=== PATIENT | male | born 1945 | race Caucasian/White ===

== ENCOUNTER 2017-02-01 14:17 | Outpatient (CLI) | payer MEDICARE ==
[2017-02-01 15:14] LABS: #Lymphocytes 0.9 thou/uL (1.20-3.40); #Monocytes 0.5 thou/uL (0.11-0.59); #Neutrophils 4.8 thou/uL (1.40-6.50); %Basophils 0.1 % (0.0-1.0); %Eosinophils 0.3 % (0.0-10.0); %Lymphocytes 14.7 % (21.0-51.0); %Monocytes 7.6 % (0.0-10.0); Mean Platelet Volume 8.2 fL (7.4-10.4); Red Blood Cell (RBC) Count 5.62 mill/uL (4.70-6.10); White Blood Cell (WBC) Count 6.1 thou/uL (4.8-10.8)
[2017-02-01 15:16] LABS: Bilirubin Negative (Negative); Blood, Urine Negative (Negative); Glucose, Urine (Dipstick) Negative (Negative); Ketone, Urine Negative (Negative); Nitrite Negative (Negative); Protein, Urine (Dipstick) Negative (Neg-Trace); Urobilinogen 0.2 mg/dL (0.2-1.0)
[2017-02-01 15:24] LABS: Bacteria/HPF None Seen HPF (None Seen); Hyaline Casts/LPF 0-3 HYALINE CAST LPF (0-3 Hyaline); RBC/HPF 0-3 HPF (0-3); Squamous Epithelial None Seen HPF (0-3); WBC/HPF None Seen HPF (0-3)
[2017-02-01 15:43] LABS: Anion Gap 14 mmol/L (10-20); BUN (Urea Nitrogen) 14 mg/dL (8.4-25.7); Calc. Creatinine Clearance 0 mL/min (70-130); Calcium 9.6 mg/dL (7.8-10.44); Carbon Dioxide 30 mmol/L (23-31); Chloride 100 mmol/L (98-107); Estimated GFR-MDRD Greater than 90
--- NOTE | 2017-02-01 16:06 | RAD ---
CHEST TWO VEIWS: History: Pre op. FINDINGS: Cardiac silhouette is upper limits of normal in size. Pulmonary vasculature is unremarkable. Mediasti num is midline. Scarring is present at each lung base. There is no confluent airspace consolidation, pneumothorax or pleural fluid evident. IMPRESSION: Mild bibasilar linear scarring. No active cardiopulmonary abnormalities are demonstrated. POS: H
--- NOTE | 2017-02-02 07:30 | EKG ---
Test Reason : Blood Pressure : / mmHG Vent. Rate : 100 BPM Atrial Rate : 100 BPM P-R Int : 156 ms QRS Dur : 086 ms QT Int : 338 ms P-R-T Axes : 071 084 055 degrees QTc Int : 436 ms Normal sinus rhythm Low voltage QRS Inferior infarct , age undetermined cannot R/O acute or recent NH Cannot rule out Anterior infarct , age undetermined Abnormal ECG No previous ECGs available Confirmed by DR. Regine MONTGOMERY ([id number]) on 02/02/2017 7:29:52 AM Referred By: VERONIQUE Confirmed By:DR. Regine MONTGOMERY
== END 2017-02-01 14:18 | disposition home or self-care (01) ==
LOC: LABBT 14:17
PROVIDERS: ATTEND Orthopaedic Surgery Hand Surgery
DX: Z01.818 Encounter for other preprocedural examination (principal); G57.02 Lesion of sciatic nerve, left lower limb
CPT/HCPCS: 71020; 80048; 81001; 85025; 93005; 93010

== ENCOUNTER 2017-02-09 07:05 | Day surgery (SDC) | payer MEDICARE ==
[2017-02-01 14:33] VITALS: BMI 39.5
[~2017-02-09 07:05] MED LIST: Calcium Chloride 1 GM/10 ML Abboject SYRINGE ONE; Ketorolac Tromethamine 30 MG/ML VIAL ONE; Lidocaine 1% PF 5 ML VIAL ONE; Ondansetron HCl/PF 4 MG/2 ML Vial ONE; PHENYLEPHRINE-NS 100 MCG/ML 10 ML SYRINGE ONE; PROPOFOL 200 MG/20 ML VIAL ONE; ePHEDrine/0.9% NaCl/PF SYRINGE 50 mg/10 ml ONE
[2017-02-09] MEDS ORDERED: Fentanyl 100 MCG/2 ML VIAL ONE (08:40)
[2017-02-09] MEDS ORDERED: Betamet Acet/Betamet Na Ph 30 MG/5 ML VIAL ONE (08:42)
[2017-02-09] MEDS ORDERED: Bacitracin Zinc Ointment 30 gm TUBE ONE (08:42)
[2017-02-09] MEDS ORDERED: Bupivacaine PF 0.5% 30 ML VIAL ONE (08:42)
[2017-02-09] MEDS ORDERED: CEFAZOLIN/Water 2 GM/20 ML SYRINGE ONE (08:45)
[2017-02-09] MEDS ORDERED: Ketorolac Tromethamine 30 MG/ML VIAL ONE (10:24)
--- NOTE | 2017-02-09 10:58 | OP ---
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 SURGEON: Dr. Ajay Suarez FINDINGS: 1. Very tight crural fascia, dorsal and deep to the peroneal nerve as it entered the crural fascia o lroena the fibular head with almost a 40% compression of the nerve at this point. PROCEDURE PERFORMED: A left peroneal nerve decompression at the fibular head. TOURNIQUET TIME: 20 minutes. ESTIMATED BLOOD LOSS: 5 mL. INJECTABLES: Yes; 1) 20 mL 0.5% Marcaine without epinephrine, 10 before incision and 10 after the in cision was closed; 2) 5 mL of Celestone dripped along the interspace at the point of compression. INDICATIONS: The patient with numbness, tingling beginning just proximal to the fibular head with po sitive Tinel's and studies preop. DESCRIPTION OF PROCEDURE: After successful general LMA technique, the patient had the limb prepped a nd draped. Time out done appropriately. We then outlined an incision beginning one fingerbreadth di stal to the fibular head. I outlined the fibular head and then coursing 2 cm dorsally and 2 cm poste rior to the head. The patient then had the limb exsanguinated, tourniquet inflated to 25 mmHg pressure and the leg was draped free with the foot on a resting to 10 pound sandbag at approximately 90 degrees of flexion. I ncision was then made, carried through skin, subcutaneous tissue, and then we dissected the overlying fat, which was minimal because the patient was not obese at this point. We identified the peroneal nerve and the lateral sural branch releasing the fascia over it approximately 2 cm proximal to the fi bular head, identified the nerve by both structure and location and the red intraneural vasculature. Here however, approximately 5 cm proximal fibular head where the fascia began was a flattening of th e nerve root over 40-50% because of stricture and loss of size in the nerve at this point. We then d issected nerve free and released a very tight intercrural band at this site of fascia. Then, I disse cted through the musculature, identified the second dorsal crural band over the nerve. Maintaining a s much of the muscle as possible, we dissected until the nerve was branching, releasing all tight ban ds including the third band that was distal to the dorsal crural band. Once we had done this, then inspected the nerve at 360 degree circumferentially, saw that the soleus fascia was slightly recessed, could be slightly recessed the soleus fascia, again inspected the later al sural nerve branch and found it had no constriction over it. At this point, the nerve began to re constitute and we gained over 70% of his girth after all the constricting bands were released. The r elease constricting bands were then dissected free and removed from the anatomical location. We then cycled the leg several times confirming there was no compression either extension or flexion, placed the 5 mL of Celestone along the nerve area and then prepared for closure. Tourniquet deflate d. Hemostasis obtained. We then irrigated and then closed the wound in 2 layers with a running 3-0 Monocryl, subcutaneous closed and epidermal closed with interrupted 4-0 nylon. The patient then left the operating room in a dressing with no evidence of anesthetic or operative co mplication.
== END 2017-02-09 11:58 | disposition home or self-care (01) ==
LOC: SDC 07:05
PROVIDERS: ATTEND Orthopaedic Surgery Hand Surgery
PROC: 01NH0ZZ Release Peroneal Nerve, Open Approach (ICD-10-PCS; principal; 2017-02-09)
DX: G57.32 Lesion of lateral popliteal nerve, left lower limb (principal); F17.210 Nicotine dependence, cigarettes, uncomplicated; M19.90 Unspecified osteoarthritis, unspecified site; N40.0 Benign prostatic hyperplasia without lower urinary tract symptoms; Z79.899 Other long term (current) drug therapy; Z98.42 Cataract extraction status, left eye; Z98.890 Other specified postprocedural states; Z87.442 Personal history of urinary calculi
CPT/HCPCS: J0702; J1885; J2001; J2405; J2704; J3010; S0020

== ENCOUNTER 2017-06-08 11:04 | Day surgery (SDC) | payer MEDICARE ==
[2017-06-07 10:00] VITALS: BMI 39.5
[2017-06-08 12:04] LABS: Calc. Creatinine Clearance 141 mL/min (70-130); Estimated GFR-MDRD Greater than 90
[2017-06-08] MEDS ORDERED: Promethazine HCl 25 MG/ML VIAL ONE (12:38)
[2017-06-08] MEDS ORDERED: Midazolam HCl 2 mg/2 ml Vial ONE (12:38)
--- NOTE | 2017-06-08 15:39 | MRI ---
MRI OF LUMBAR SPINE WITH AND WITHOUT CONTRAST 06/08/17 INDICATION; 71-year-old male with multiple back surgeries, recent injury with left foot numbness. TECHNIQUE: Multiplanar and multisequence MRI images were obtained of the lumbar spine with and without contrast utilizing 20 mL of Multihance. Comparison is made with radiographs of lumbar spine dated 01/14/15. FINDINGS: There is stable postsurgical change of laminectomies at L3 and L4. The conus is seen to terminate at T12-L1. There is a 2.7 cm cyst within the left kidney. There is a 7 mm cyst within the left mid kidn ey. At the L5-S1 level, there is severe facet joint degenerative change and broad based bulge without jaydon reciable central canal or neural foraminal narrowing. At L4-5, there is a broad based bulge with a superimposed central protrusion inducing moderate bilate ral lateral recess narrowing without definite impingement. The broad based bulge and facet hypertroph y induces mild to moderate left neural foraminal narrowing. At L3-4, there is a broad based bulge with facet hypertrophy inducing moderate bilateral neural alfreda inal narrowing. At L2-3, there is a broad based bulge with facet hypertrophy inducing mild left neural foraminal narr owing. There is also mild central canal narrowing due to the broad based bulge and ligamentum flavum hypertrophy at this level. At L1-2, there is no definite appreciable central canal or neural foraminal narrowing. At T12-L1, there is no appreciable central canal or neural foraminal narrowing. No definite abnormal enhancement is demonstrated. IMPRESSION: 1. Mild central canal narrowing at L2-3 with mild left neural foraminal narrowing. 2. Moderate bilateral neural foraminal narrowing at L3-4. 3. Moderate bilateral lateral recess narrowing at L4-5 due to broad based bulge and facet hypert rophy. There is mild to moderate left neural foraminal narrowing at L4-5. 4. Postoperative changes of the lumbar spine. 5. Left renal cyst. POS: DIPAK
[2017-06-08] MEDS ORDERED: Gadobenate Dimeglumine 529 MG/1 ML (20ML VIAL) ONE (20:23)
== END 2017-06-08 16:18 | disposition home or self-care (01) ==
LOC: SDC/OP 11:04
PROVIDERS: ATTEND Neurological Surgery
DX: M54.5 Low back pain (principal); Z79.899 Other long term (current) drug therapy; Z98.890 Other specified postprocedural states
CPT/HCPCS: 36415; 72158; 82565; A9579; J2250; J2550

== ENCOUNTER 2017-08-13 05:41 | Day surgery (SDC) | payer MEDICARE ==
[2017-08-10 10:40] VITALS: BMI 39.5
--- NOTE | 2017-08-12 22:43 | HP ---
HISTORY OF PRESENT ILLNESS: Mr. Lopez is a 72-year-old man known to us for previous evaluations of neck and low back, mostly lumbar pathology with a few previous lumbar decompressions in the past. Benedict hull returns now with continued severe low back pain. He denies much of any radicular pain. 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 He has had an interspinous steroid injection with Dr. Mckeon and does report that did offer him some relief. He hopes to move forward with surgery to help correct this. PAST MEDICAL HISTORY: Kidney stones, headaches, lumbar radiculopathy, and stenosis. PAST SURGICAL HISTORY: Knee arthroscopy, kidney stone lithotripsy, bilateral carpal tunnel release, and lumbar laminectomy x2. CURRENT MEDICATIONS: Flomax, Zithromax, Claritin. ALLERGIES: No known drug allergies. PHYSICAL EXAMINATION: Patient is alert and oriented x3. Gait is antalgic. Lower extremity exam is normal. ASSESSMENT: Lumbar back pain. PLAN: Dr. Hall met with the patient, reviewed imaging and advocated for L1-L2 spinous process resec tion. He explained to the patient the risks, benefits, alternatives to the procedure. The patient e xpressed understanding and would like to move forward with surgery as discussed. I do believe the so silverio is mentally competent and capable of making medical decisions for himself and we will move foralexandre oseguera with surgery as planned. Gibson Burgos PA-C dictating for Dr. Hall.
[2017-08-13] MEDS ORDERED: Fentanyl 250 MCG/5 ML VIAL ONE (06:10)
[2017-08-13] MEDS ORDERED: Midazolam HCl 2 mg/2 ml Vial ONE (06:10)
[2017-08-13] MEDS ORDERED: Bupivacaine HCl 0.5%/Epinephrine 1:200,000/PF 30 ml Vial ONE (06:16)
[2017-08-13] MEDS ORDERED: Thrombin 5000 UNITS/5 ML VIAL ONE (06:16)
[2017-08-13] MEDS ORDERED: CEFAZOLIN/Water 2 GM/20 ML SYRINGE ONE ×2 (06:18→09:46)
--- NOTE | 2017-08-13 08:07 | OP ---
DATE OF PROCEDURE: 08/13/2017 SURGEON: Terry Hall M.D. PRINCIPAL TECHNICAL WRITER: Gibson Burgos PA-C. INDICATION: Pain. DIAGNOSES: Low back pain. PROCEDURE: Resection of spinous process at L1 and L2 segment. ANESTHESIA: General. TECHNIQUE: The patient was brought into the operating room and placed under general anesthesia. He was flipped from a supine or prone position on the operating room table. A linear incision was plann ed along the L1-L2 segment just superior to an older incision. After prepping and draping and after an appropriate operative pause, the incision was created. The soft tissues were swept away from midl ine. Self-retaining retractors were placed in the wound for optimal exposure. After confirming the appropriate level with C-arm fluoroscopy, an Adson rongeur was used to remove the spinous process of L1-L2. After removing the spinous processes the wound was irrigated. Hemostasis was maintained thro ughout. The wound was then closed in anatomic layers and a pressure dressing was applied. There wer e no known procedural complications.
[2017-08-13] MEDS ORDERED: Bacitracin Zinc Ointment 30 gm TUBE ONE (08:11)
[2017-08-13] MEDS ORDERED: Fentanyl 100 MCG/2 ML VIAL ONE (08:25)
[2017-08-13] MEDS ORDERED: Tamsulosin HCl 0.4 MG CAP ONE (08:48)
[2017-08-13] MEDS ORDERED: Dexamethasone 20 MG/5 ML VIAL ONE (14:52)
[2017-08-13] MEDS ORDERED: ePHEDrine/0.9% NaCl/PF SYRINGE 50 mg/10 ml ONE (14:52)
[2017-08-13] MEDS ORDERED: PHENYLEPHRINE-NS 100 MCG/ML 10 ML SYRINGE ONE (14:52)
[2017-08-13] MEDS ORDERED: Lidocaine 1% PF 5 ML VIAL ONE (14:52)
[2017-08-13] MEDS ORDERED: Ondansetron HCl/PF 4 MG/2 ML Vial ONE (14:52)
[2017-08-13] MEDS ORDERED: Glycopyrrolate 0.2 MG/ML 5 ML SYRINGE ONE (14:52)
[2017-08-13] MEDS ORDERED: PROPOFOL 200 MG/20 ML VIAL ONE (14:52)
== END 2017-08-13 11:30 | disposition home or self-care (01) ==
LOC: SDC 05:41
PROVIDERS: ATTEND Neurological Surgery
PROC: 0QB00ZZ Excision of Lumbar Vertebra, Open Approach (ICD-10-PCS; principal; 2017-08-13)
DX: M54.5 Low back pain (principal); Z98.890 Other specified postprocedural states
CPT/HCPCS: 76001; J0670; J1100; J2001; J2250; J2405; J2704; J3010

== ENCOUNTER 2018-02-22 09:43 | Day surgery (SDC) | payer MEDICARE ==
--- NOTE | 2018-02-21 13:46 | HP ---
HISTORY OF PRESENT ILLNESS: Mr. Lopez is known to us for multiple lower back surgeries, who returns now with recurrent back pain and radicular symptoms as well as severe left knee pain. He hopes to obtain new MRIs of both his back and left knee if possible. PAST MEDICAL HISTORY: Includes kidney stones, headaches, lumbar radiculopathy, spinal stenosis. PAST SURGICAL HISTORY: Knee arthroscopy, kidney stone lithotripsy, bilateral carpal tunnel release, lumbar laminectomy x3. CURRENT MEDICATIONS: 1. Flomax. 2. Zithromax. 3. Claritin. ALLERGIES: NO KNOWN DRUG ALLERGIES. PHYSICAL EXAMINATION: GENERAL: The patient is alert and oriented x3. MUSCULOSKELETAL: Gait is severely antalgic. Lower extremity motor exam is normal. ASSESSMENT: Left knee pain and lumbar radiculopathy. PLAN: We will obtain new MRIs of both his lumbar spine with and without contrast and the left knee and then we will have him back for review. Job ID: [id number]
[2018-02-22] MEDS ORDERED: Midazolam HCl 2 mg/2 ml Vial ONE (12:15)
[2018-02-22] MEDS ORDERED: Fentanyl 100 MCG/2 ML VIAL ONE (12:15)
[2018-02-22 13:09] LABS: Estimated GFR-MDRD - POC Greater than 90
--- NOTE | 2018-02-22 14:27 | MRI ---
MRI LEFT KNEE WITHOUT CONTRAST: INDICATIONS: Left knee pain. FINDINGS: There is mild joint capsular distention. There is a small popliteal cyst. The extensor mechanism is intact. The ACL, PCL, MCL, and LCLC are intact. There is a small, focal, full-thickness, chondral fissure suspected, involving the lateral femoral trochlea, best seen on image 16 of series 4 and imag e 12 of series 7, with some associated subchondral edema. There is nonspecific subcutaneous edema stokes rrounding the left knee and proximal left foreleg. IMPRESSION: 1. Mild suspected full-thickness articular cartilage fissure, involving the lateral femoral trochlea . 2. The anterior cruciate ligament, posterior cruciate ligament, medial collateral ligament, and late ral collateral ligament complex are intact. 3. The medial and lateral menisci appear intact. POS: CET
--- NOTE | 2018-02-22 15:41 | MRI ---
MRI LUMBAR SPINE WITH AND WITHOUT CONTRAST: Date: 02/22/18 COMPARISON: 06/08/17 exam. INDICATION: Lumbar radiculopathy. FINDINGS: Conus medullaris terminates at the T12-L1 level, stable appearing. No acute marrow edema, compression deformity, or significant subluxation. Intervertebral disc space heights are preserved. Multilevel posterior decompression spans the L3 through L5 level. L1-2: There is mild central canal stenosis due to broad based disc osteophyte and bilateral degenera tive facet hypertrophy. There is mild narrowing of the left neural foramina. No significant right for aminal stenosis. L2-3: Moderate central canal stenosis is present due to disc osteophyte when combined with degenerat belem facet hypertrophy and redundancy of ligamentum flavum. There is moderate right subarticular steno sis with crowding of the traversing right L3 nerve root. Mild bilateral neural foraminal narrowing is present. L3-4: There is mild transverse diameter narrowing of the vertebral canal on the basis of bilateral f acet hypertrophy. Broad based disc osteophyte produces effacement of ventral thecal sac. There is scroll machine operator wding of the bilateral traversing L4 nerve roots within the subarticular zones. Moderate biforaminal stenosis present. L4-5: No high grade central canal stenosis. There is moderate left and mild right neural foraminal s tenosis due to broad based disc osteophyte and facet hypertrophy. L5-S1: Bilateral degenerative moderate facet hypertrophy is present. There is no significant comprom ise of the central canal. There is potential for impingement upon the traversing left S1 nerve root w ithin the subarticular zone. Mild bilateral neural foraminal narrowing is present. Evaluation of postcontrast imaging reveals no significant mass-producing enhancement of the vertebral canal. There is mild enhancement posterior to the thecal sac at the operative levels, likely due to postoperative fibrosis. Incidental note of a left renal cyst and an additional punctate T2 hyperintensity too small to defini tively characterize, stable. There is left paraspinous and posterior paraspinous muscular atrophy. Dependent edema seen within the subcutaneous tissues. IMPRESSION: Postoperative lumbar spine with multilevel degenerative changes as discussed above. POS: DIPAK
[2018-02-22] MEDS ORDERED: Ondansetron PF 4 MG/2 ML Vial ONE (16:34)
[2018-02-22] MEDS ORDERED: PROPOFOL 200 MG/20 ML VIAL ONE (16:34)
[2018-02-22] MEDS ORDERED: Dexamethasone 20 MG/5 ML VIAL ONE (16:34)
== END 2018-02-22 15:50 | disposition home or self-care (01) ==
LOC: SDC/OP 09:43 → EDSTATUS 12:00 → SDC/OP 15:50
PROVIDERS: ATTEND Neurological Surgery
DX: M54.16 Radiculopathy, lumbar region (principal); M25.562 Pain in left knee; M25.78 Osteophyte, vertebrae; M48.061 Spinal stenosis, lumbar region without neurogenic claudication; Z79.899 Other long term (current) drug therapy; Z98.890 Other specified postprocedural states
CPT/HCPCS: 72158; 82565; J1100; J2250; J2405; J2704; J3010